=== PATIENT | female | born 1955 | race Caucasian/White ===

== ENCOUNTER 2016-07-06 19:28 | Emergency (ER) | payer OTHER ==
[2016-07-06] MEDS ORDERED: HYDROmorphONE/DILAUDID 1 MG/ML SYR IM ONE (20:25)
[2016-07-06] MEDS ORDERED: ONDANSETRON DISINTEGRATING 4 MG TAB PO ONE (20:25)
[2016-07-06] MEDS ORDERED: CYCLOBENZAPRINE 10 MG TAB PO ONE (20:25)
--- NOTE | 2016-07-06 20:28 | EDPHY ---
H & P Stated Complaint: worsened disc problems, existing L4-S1 disc issues HPI/ROS: CHIEF COMPLAINT: Back pain HISTORY OF PRESENT ILLNESS: REVIEW OF SYSTEMS: Ten systems reviewed and are negative unless otherwise noted in the HPI EXAMINATION General Appearance: Alert, no distress Head: normocephalic, atraumatic Eyes: Pupils equal and round, no conjunctival pallor or injection ENT, Mouth: Mucous membranes moist . Uvula midline. Neck: Normal inspection, supple, non-tender Respiratory: Lungs are clear to auscultation . No wheezing or rhonchi. Cardiovascular: Regular rate and rhythm . No murmurs. Pulses intact distally with symmetric radial, DP and PT. Gastrointestinal: Abdomen is soft and nontender Back: tender to palpation in the lumbar region on the para spinous musculature. No bony tenderness. No crepitus, step-off or deformity.no bony abnormalities . Range of motion limited by pain. Neurological: A&O, nonfocal, Sensory symmetric in both legs and arms. Strength is 5/5 in all limbs. No pronator drift. Reflexes symmetric on the patellar and Achilles. Antalgic with steady gait Skin: Warm and dry, no rash Extremities: Nontender, no pedal edema Psychiatric: Mood and affect normal DIFFERENTIAL DIAGNOSES: Including but not limited to Acute bulging disc, acute ruptured disc, degenerative disc, lumbar fracture MDM: 8:26 p.m. 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 She felt a sudden onset of pain in the lumbar region that radiates to the left and right. There is no pain that radiates past the soft tissue of the back. There is no pain that radiates down either leg. No saddle anesthesia. No incontinence of bowel or bladder. No weakness of the lower extremities. No paresthesias of the lower extremities. Pain is very severe otherwise. We did discuss MRI versus medications. The patient is declining an MRI at this time and prefers to be treated for her pain we will re-evaluate. She is fully neuro intact without any evidence of acute cord injury or cauda equina and I do feel this is reasonable at this time. 9:45 p.m. re-evaluated the patient. She is feeling somewhat better and ambulated with assistance. We had a very lengthy discussion regarding MRI which I did offer and recommend for her. She has declined and would like to be discharged home with pain medication, muscle relaxant and outpatient follow-up. We discussed return to the emergency department precautions, including worsening pain, numbness, tingling, saddle anesthesia, incontinence of bowel or bladder, retention of bowel or bladder, motor changes distally. She is comfortable with Assuming this risk and will be discharged home and follow up with the primary care physician. prior to being so I will obtain a lumbar spine plain film in live an MRI to rule out any acute fracture. 11:00 p.m. lumbar x-rays read as degenerative disc only. No fracture. She is feeling much better and still wants to be discharged home. We revisited the discussion regarding the MRI, any signs or symptoms that may worsen existing her return. At this point I do not appreciate any neuro deficits or evidence of acute cord compression she will be discharged home ambulatory in stable condition. Return to the emergency department precautions and follow up with primary care for MRI and further care. SUPERVISION: This patient was independently evaluated without the aide of supervising physician. Source: Patient Exam Limitations: No limitations - Personal History Current Tetanus/Diphtheria Vaccine: Unsure Current Tetanus Diphtheria and Acellular Pertussis (TDAP): Unsure - Medical/Surgical History Hx Asthma: No Hx Chronic Respiratory Disease: No Hx Diabetes: No Hx Cardiac Disease: No Hx Renal Disease: No Hx Cirrhosis: No Hx Alcoholism: No Hx HIV/AIDS: No Hx Splenectomy or Spleen Trauma: No Other PMH: PSH: B bunion surgery, pancreatic CA, degen disc disease - Social History Smoking Status: Never smoked Constitutional: Initial Vital Signs Temperature (C) 98.6 F 07/06/16 19:50 Heart Rate 74 07/06/16 19:50 Respiratory Rate 15 07/06/16 19:50 Blood Pressure 101/59 L 07/06/16 19:50 O2 Sat (%) 93 07/06/16 19:50 O2 Delivery Mode Room Air Allergies/Adverse Reactions: No Known Allergies Allergy (Unverified 03/03/15 18:47) Home Medications: Medication Instructions Recorded Protonix 12/02/15 Creon 12 (*) 07/06/16 Cyclobenzaprine [Flexeril 10 MG 10 mg PO TID PRN #15 tab 07/06/16 (*)] oxyCODONE HCL/ACETAMINOPHEN 1 each PO Q4-6PRN PRN #20 tablet 07/06/16 [Percocet 5-325 mg Tablet] predniSONE 60 mg PO DAILY #12 tab 07/06/16 Medical Decision Making - Data Points Medications Given: Discontinued Medications Cyclobenzaprine HCl (Flexeril) 10 mg PO EDNOW ONE Stop: 07/06/16 20:26 Last Admin: 07/06/16 20:50 Dose: 10 mg Cyclobenzaprine HCl (Flexeril 10 Mg Prepack#3) 1 btl TAKEHOME EDNOW ONE Stop: 07/06/16 21:48 Last Admin: 07/06/16 22:05 Dose: 1 btl Hydromorphone HCl (Dilaudid) 1 mg IM EDNOW ONE Stop: 07/06/16 20:26 Last Admin: 07/06/16 20:50 Dose: 1 mg Ondansetron HCl (Zofran Odt) 4 mg PO EDNOW ONE Stop: 07/06/16 20:26 Last Admin: 07/06/16 20:51 Dose: 4 mg Oxycodone/Acetaminophen (Percocet 5/325) 1 tab PO EDNOW ONE Stop: 07/06/16 21:47 Last Admin: 07/06/16 22:05 Dose: 1 tab Oxycodone/Acetaminophen (Percocet 5/325mg Prepack#4) 1 btl TAKEHOME EDNOW ONE Stop: 07/06/16 21:48 Last Admin: 07/06/16 22:06 Dose: 1 btl Prednisone (Prednisone) 60 mg PO EDNOW ONE Stop: 07/06/16 21:48 Last Admin: 07/06/16 22:06 Dose: 60 mg Departure - Departure Clinical Impression: Acute low back pain Qualifiers: Back pain laterality: unspecified Sciatica presence: without sciatica Qualifier Code: (M54.5) Low back pain Degeneration of intervertebral disc Qualifiers: Spinal region: lumbar Qualifier Code: (M51.36) Other intervertebral disc degeneration, lumbar region Condition: Fair Instructions: Acute Low Back Pain (ED) Additional Instructions: ED precautions as discussed. Return for worsening pain, numbness, tingling, weakness, incontinence of bowel or bladder, retention of bowel or bladder. Fever, chills. Referrals: Brie Stanford MD [Primary Care Provider] - As per Instructions Prescriptions: Cyclobenzaprine [Flexeril 10 MG (*)] 10 mg PO TID PRN #15 tab PRN Reason: Spasms oxyCODONE HCL/ACETAMINOPHEN [Percocet 5-325 mg Tablet] 1 each PO Q4-6PRN PRN # 20 tablet PRN Reason: Pain, Moderate predniSONE 60 mg PO DAILY #12 tab
[2016-07-06] MEDS ORDERED: OXYCODONE/APAP 5/325 TAB PO ONE (21:46)
[2016-07-06] MEDS ORDERED: predniSONE 20 MG TAB PO ONE (21:47)
[2016-07-06] MEDS ORDERED: OXYCODONE/APAP 5/325MG PREPACK#4 BTL TAKEHOME ONE (21:47)
[2016-07-06] MEDS ORDERED: CYCLOBENZAPRINE 10MG PREPACK#3 BTL TAKEHOME ONE (21:47)
--- NOTE | 2016-07-06 22:54 | DX ---
Lumbar spine, 2 views. History: Pain. Findings: Marked intervertebral disk height loss at L4-L5 and L5 -S1 compatible with degenerative dis k disease. Moderate disk height loss at L3-L4. No fracture or subluxation. Impression: Lower lumbar degenerative disk disease.
[2016-07-06 23:16] VITALS: BP 95/60; PULSE 62; RESP 16; TEMP 98.1; O2SAT 98
== END 2016-07-06 23:16 | disposition home or self-care (01) ==
DX: M51.36 Other intervertebral disc degeneration, lumbar region (principal); Z85.07 Personal history of malignant neoplasm of pancreas
CPT/HCPCS: J1170

== ENCOUNTER → 2016-11-10 | Outpatient (CLI) | payer OTHER ==
[~2016-11-10] MED LIST: DEPO METHYLPREDNISOLONE 40 MG/ML SDV ONE; IOPAMIDOL (ISOVUE 370) 100 ML BTL IV ONE; LIDOCAINE 1% 300 MG/30 ML SDV ONE; ROPIVACAINE HCL 150 MG/30 ML INJ ONE
== END ==
LOC: FIMAGING 12:48
PROVIDERS: ATTEND Physician Assistant
PROC: 3E0U33Z Introduction of Anti-inflammatory into Joints, Percutaneous Approach (ICD-10-PCS; principal; 2016-11-10)
PROC: 3E0U3BZ Introduction of Anesthetic Agent into Joints, Percutaneous Approach (ICD-10-PCS; principal; 2016-11-10)
DX: M16.0 Bilateral primary osteoarthritis of hip (principal)
CPT/HCPCS: J1030; J2795; Q9967

== ENCOUNTER 2017-10-14 09:21 | Emergency (ER) | payer OTHER ==
[2017-10-14] MEDS ORDERED: NS 1,000 ML IV ONE (09:38)
--- NOTE | 2017-10-14 09:38 | EDPHY ---
General Time Seen by Provider: 10/14/17 09:30 Narrative: CHIEF COMPLAINT: Diarrhea HISTORY OF PRESENT ILLNESS: Patient presents with complaints of diarrhea. This started on Monday. She describes multiple episodes per day. This happens every time she tries to eat or drink anything. Associated with some cramping but no ongoing pain. No blood in the stool. No fever. No flank pain. Urinary complaints. She has no recent travel or hospitalization. No recent visitation to [facility]. No recent antibiotics or history of C difficile infection. She does have a history of pancreatic cancer, status post Whipple 2 years ago. She is not undergoing any radiation chemotherapy at this time. She has contacted her naturopathic physician and has been taking naturopathic medications with no improvement. No other associated complaints or modifying factors REVIEW OF SYSTEMS: Ten systems reviewed and are negative unless otherwise noted in the HPI PCP: Naturopathic physician SPECIALISTS: General surgeon at [facility] PAST MEDICAL HISTORY: Pancreatic cancer 2014 PAST SURGICAL HISTORY: Bunionectomy. 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 Lives here locally independently FAMILY HISTORY: Noncontributory EXAMINATION General Appearance: Alert, no distress Head: normocephalic, atraumatic Eyes: Pupils equal and round, no conjunctival pallor or injection ENT, Mouth: Mucous membranes moist Neck: Normal inspection, supple, non-tender Respiratory: Lungs are clear to auscultation Cardiovascular: Regular rate and rhythm Gastrointestinal: Abdomen is soft and nontender. No tympany. No rigidity. No distention. No guarding. Benign abdominal examination Back: non-tender, no bony abnormalities Neurological: A&O, nonfocal, normal gait Skin: Warm and dry, no rash Extremities: Nontender, no pedal edema Psychiatric: Mood and affect normal DIFFERENTIAL DIAGNOSES: Including but not limited to C difficile colitis, rotavirus, infectious diarrhea , dehydration, contraction alkalosis, colitis, enteritis MDM: 9:40 a.m. Profuse, watery diarrhea since Monday. No fever. No abdominal pain. No recent travel, admission to the hospital, antibiotics were history of C difficile colitis. Her abdominal exam is benign. She is in no acute distress with vital signs stable. I have ordered laboratory studies, IV fluid, stool studies for C difficile evaluation. 11:30 a.m. Patient has been unable to provide a stool sample. She has had no diarrhea or bowel movement. She is feeling well. He is ambulating and asking to be discharged home. She is asking if she can provide a sample when she goes home. I informed her that I can write an outpatient laboratory study for her but she will need her primary care physician to follow up on the result. She would like to do this in assume responsibility for this. Additionally I told her I will be irrigated tomorrow morning and can check her chart to see if she has provided a sample. I have read neuro prescription for Flagyl. She has instructions to hold onto the prescription and not fill it unless she has a positive result for C difficile colitis. She is in no discomfort I would like to go home. She is discharged in stable condition SUPERVISION: Patient was independently examined, but I discussed the case with my secondary supervising physician Dr. Porter - History Smoking Status: Never smoked - Objective Vital Signs: Initial Vital Signs Temperature (C) 97.9 F 10/14/17 09:26 Heart Rate 79 10/14/17 09:26 Respiratory Rate 16 10/14/17 09:26 Blood Pressure 125/71 H 10/14/17 09:26 O2 Sat (%) 98 10/14/17 09:26 O2 Delivery Mode Room Air Allergies/Adverse Reactions: No Known Allergies Allergy (Unverified 10/14/17 09:26) Home Medications: Medication Instructions Recorded Creon 12 (*) 07/06/16 metroNIDAZOLE [Flagyl 500 mg (*)] 500 mg PO BID #28 tab 10/14/17 Laboratory Results: Laboratory Results 10/14/17 10:01 10/14/17 10/14/17 10:01 10:01 WBC Pending RBC Pending Hgb Pending Hct Pending MCV Pending MCH Pending MCHC Pending RDW Pending Plt Count Pending MPV Pending Neut % (Auto) Pending Lymph % (Auto) Pending [place] % (Auto) Pending Eos % (Auto) Pending Baso % (Auto) Pending Nucleat RBC Rel Count Pending Absolute Neuts (auto) Pending Absolute Lymphs (auto) Pending Absolute Monos (auto) Pending Absolute Eos (auto) Pending Absolute Basos (auto) Pending Absolute Nucleated RBC Pending Immature Gran % Pending Immature Gran # Pending Sodium 137 mEq/L mEq/L (135-145) Potassium 5.3 mEq/L H mEq/L (3.5-5.2) Chloride 102 mEq/L mEq/L (97-110) Carbon Dioxide 22 mEq/l mEq/l (22-31) Anion Gap 13 mEq/L mEq/L (8-16) BUN 14 mg/dL mg/dL (7-23) Creatinine 0.8 mg/dL mg/dL (0.6-1.0) Estimated GFR > 60 Glucose 92 mg/dL mg/dL (70-100) Calcium 9.4 mg/dL mg/dL (8.5-10.4) Medications Given: Discontinued Medications Sodium Chloride (Ns) 1,000 mls @ 0 mls/hr IV EDNOW ONE; Wide Open PRN Reason: Protocol Stop: 10/14/17 09:39 Last Admin: 10/14/17 10:14 Dose: 1,000 mls Departure - Departure Disposition: Home, Routine, Self-Care Clinical Impression: Diarrhea Qualifiers: Diarrhea type: unspecified type Qualified Code(s): R19.7 - Diarrhea, unspecified Condition: Good Instructions: Loperamide (By mouth), Acute Diarrhea (ED) Additional Instructions: 1. Outpatient laboratory studies as discussed 2. Return to this emergency department for return of symptoms, fever, bloody stools or abdominal pain 3. I have printed a prescription for Flagyl. Do not start taking this unless you have a verified positive C difficile infection on your stool sample that you will bring to the lab Referrals: Brie Stanford MD [Primary Care Provider] - As per Instructions Stand Alone Forms: Outpatient Laboratory Order Prescriptions: metroNIDAZOLE [Flagyl 500 mg (*)] 500 mg PO BID #28 tab
[2017-10-14 11:32] LABS: PLATELET COUNT 312 10^3/uL (150-400)
[2017-10-14 11:45] VITALS: BP 120/75
== END 2017-10-14 11:48 | disposition home or self-care (01) ==
DX: R19.7 Diarrhea, unspecified (principal); E86.9 Volume depletion, unspecified; Z85.07 Personal history of malignant neoplasm of pancreas

== ENCOUNTER 2017-11-22 02:07 | Inpatient (IN) | payer OTHER ==
[2017-11-22] MEDS ORDERED: ONDANSETRON 4 MG/2 ML VIAL ONE (02:23)
[2017-11-22] MEDS ORDERED: ONDANSETRON 4 MG/2 ML VIAL IVP ONE (02:24)
[2017-11-22] MEDS ORDERED: NS 1,000 ML IV ONE (02:24)
--- NOTE | 2017-11-22 02:36 | EDPHY ---
H & P Stated Complaint: ongoing n/v/abd cramping x 8 hrs Time Seen by Provider: 11/22/17 02:33 HPI/ROS: HPI CHIEF COMPLAINT: Nausea vomiting abdominal pain HISTORY OF PRESENT ILLNESS: Patient very pleasant 61-year-old female she has a history of pancreatic cancer she had a Whipple procedure, underwent radiation and chemotherapy. She was in remission from pancreatic cancer but had a recurrence. She was earlier in the year enrolled in a study however. The study as the chemotherapy was making her too sick. She now is treating her pancreatic cancer with a natural remedies. She did have a CT scan of her abdomen pelvis done at [facility] yesterday for routine care in follow-up. . However yesterday around 430 in the afternoon she started having some nausea and has had 3 episodes of vomiting. She complains of diffuse abdominal pain that she describes as pins and needles. She states she had 2 bowel movements no recent diarrhea. Denies any chest pain or shortness of breath, denies fever. Denies urinary symptoms. She does states since arriving to the emergency room she denies any significant abdominal pain at this time. The abdominal pain is improved. Past Medical History: Pancreatic cancer Past Surgical History: Whipple procedure Social History: Denies drugs alcohol tobacco. Family History: Noncontributory ROS REVIEW OF SYSTEMS: A comprehensive 10 point review of systems is otherwise negative aside from elements mentioned in the history of present illness. Exam Constitutional nontoxic. triage nursing summary reviewed, vital signs reviewed , awake/alert. Eyes normal conjunctivae and sclera, EOMI, PERRLA. HENT normal inspection, atraumatic, moist mucus membranes, no epistaxis, neck supple/ no meningismus, no raccoon eyes. Respiratory clear to auscultation bilaterally, normal breath sounds, no respiratory distress, no wheezing. Cardiovascular rate normal, regular rhythm, no murmur, no edema, distal pulses normal. Gastrointestinal mild tender palpation diffusely no rebound, no guarding, normal bowel sounds, no distension, no pulsatile mass. Genitourinary no CVA tenderness. Musculoskeletal no midline vertebral tenderness, full range of motion, no calf swelling, no tenderness of extremities, no meningismus, good pulses, neurovascularly intact. Skin pink, warm, & dry, no rash, skin atraumatic. Neurologic awake, alert and oriented x 3, AAOx3, moves all 4 extremities equally, motor intact, sensory intact, CN II-XII intact, normal cerebellar, normal vision, normal speech. Psychiatric normal mood/affect. Heme/Lymph/Immune no lymphadenopathy. Differential diagnosis includes but is not limited to and in no particular order : Bowel obstruction, appendicitis, gallbladder disease, diverticulitis, colitis , enteritis, perforated viscus, gastritis, GERD, esophagitis, urinary tract infection, pyelonephritis, kidney stones Medical Decision Making: Plan for this patient IV establishment with IV fluid bolus, IV Zofran for nausea, check blood work including lactic acid, will speak to [facility] to obtain CT report from yesterday. Re-evaluation: CT scan abdomen pelvis reviewed that was performed yesterday and [facility]. This was faxed over result stools. This CT scan shows increasing in size of the mass in the resected bed consistent with recurrent disease note that there is increasing mass effect on the superior mesenteric vein which is now focally moderately Narrowed by the mass additionally increase in size in the left supraclavicular mediastinal and David pancreatic lymphadenopathy Additionally numerous new lung nodules and hepatic lesions also likely representing metastatic disease. CT scan abdomen pelvis with IV contrast: Called to me by Dr. Tang, shows increasing metastatic disease with metastatic lesions to the liver and lung, pancreatic mass 3 cm. Does not occlude the SMV. She does have some mesenteric stranding. Additionally her descending going to her anus appears slightly inflamed concerning for colitis. She has had diarrhea. 0534: Spoke with the hospitalist service Dr. Franklin agrees to admit. Source: Patient - Medical/Surgical History Hx Asthma: No Hx Chronic Respiratory Disease: No Hx Diabetes: No Hx Cardiac Disease: No Hx Renal Disease: No Hx Cirrhosis: No Hx Alcoholism: No Hx HIV/AIDS: No Hx Splenectomy or Spleen Trauma: No Other PMH: Bilat bunion surgery, pancreatic CA, degen disc disease, cholecystectomy/whipple procedure - Social History Smoking Status: Never smoked Constitutional: Initial Vital Signs Temperature (C) 36.9 C 11/22/17 02:11 Heart Rate 72 11/22/17 02:11 Respiratory Rate 18 11/22/17 02:11 Blood Pressure 118/64 11/22/17 02:11 O2 Sat (%) 95 11/22/17 02:11 O2 Delivery Mode Room Air Allergies/Adverse Reactions: No Known Allergies Allergy (Verified 11/22/17 02:17) Home Medications: Medication Instructions Recorded Lipase/Protease/Amylase [Mario Dr 2 each PO TIDMEAL 07/06/16 36,000 Units Capsule] Herbals/Supplements -Info Only 1 each PO DAILY 11/22/17 Medical Decision Making - Diagnostics Imaging Results: Imaging Impressions Abdomen CT 11/22/17 04:21 Impression: 1. 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 The proximity of the mass in the retroperitoneum raises the possibility of involvement of the celiac plexus as etiology for pain. 2. 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 3. Small volume of segmental pulmonary emboli in the posterior segment right lower lobe. 4. New pulmonary nodules and liver lesions suspicious for metastatic disease. If desired, the lesion in the lateral segment of left lobe of liver may be amenable to imaging-guided biopsy. 5. Edema and wall thickening of the descending and rectosigmoid colon may represent colitis or be secondary to venous congestion secondary to superior mesenteric vein narrowing. The study was performed as an emergency on-call case and discussed by telephone with Dr. Blackmon at 5:15 a.m. The tiny subsegmental filling defect in the right lower lobe pulmonary artery was not noted at 5:15 a.m. The results were called to Dr. Sanchez at 9:20 a.m. - Data Points Laboratory Results: Laboratory Results 11/22/17 02:40 11/22/17 08:52 Medications Given: Enoxaparin Sodium (Lovenox) 60 mg SC BID CARMELA Stop: 05/21/18 11:59 Last Admin: 11/22/17 21:44 Dose: 60 mg Sodium Chloride (Ns) 1,000 mls @ 100 mls/hr IV CONT CARMELA Stop: 05/21/18 06:29 Last Admin: 11/22/17 09:44 Dose: 1,000 mls Ondansetron HCl (Zofran) 4 mg IVP Q4HRS PRN PRN Reason: Nausea/Vomiting, Can't Take PO Stop: 05/21/18 06:16 Last Admin: 11/22/17 09:43 Dose: 4 mg Pantoprazole Sodium (Protonix) 40 mg IVP BID CARMELA Stop: 05/21/18 11:44 Last Admin: 11/22/17 21:44 Dose: 40 mg Discontinued Medications Hydromorphone HCl (Dilaudid) 0.5 mg IVP EDNOW ONE Stop: 11/22/17 03:15 Last Admin: 11/22/17 03:16 Dose: 0.5 mg Hydromorphone HCl (Dilaudid) 1 mg IVP EDNOW ONE Stop: 11/22/17 03:51 Last Admin: 11/22/17 03:51 Dose: 1 mg Sodium Chloride (Ns) 1,000 mls @ 0 mls/hr IV EDNOW ONE; Wide Open PRN Reason: Protocol Stop: 11/22/17 02:25 Last Admin: 11/22/17 02:38 Dose: 1,000 mls Ondansetron HCl (Zofran) 4 mg IVP EDNOW ONE Stop: 11/22/17 02:25 Last Admin: 11/22/17 02:53 Dose: 4 mg Departure - Departure Disposition: [facility] Acute Clinical Impression: Colitis Pancreatic cancer Qualifiers: Pancreatic malignancy location: other parts of pancreas Qualified Code(s): C25.7 - Malignant neoplasm of other parts of pancreas Abdominal pain Qualifiers: Abdominal location: generalized Qualified Code(s): R10.84 - Generalized abdominal pain Condition: Serious
[2017-11-22 02:46] LABS: PLATELET COUNT 200 10^3/uL (150-400)
[2017-11-22 02:54] LABS: INR 0.97 (0.83-1.16); PROTIME(PATIENT) 13.1 SEC (12.0-15.0)
[2017-11-22] MEDS ORDERED: HYDROmorphONE/DILAUDID 1 MG/ML INJ IVP ONE ×2 (03:14→03:50)
[2017-11-22] MEDS ORDERED: IOPAMIDOL (ISOVUE-300) 100 ML BTL ONE (04:30)
[2017-11-22] MEDS ORDERED: ACETAMINOPHEN 325 MG TAB PO PRN (06:17)
[2017-11-22] MEDS ORDERED: LORazepam 0.5 MG TAB PO PRN (06:17)
[2017-11-22] MEDS ORDERED: oxyCODONE IR 5 MG TAB PO PRN (06:17)
[2017-11-22] MEDS ORDERED: ONDANSETRON 4 MG/2 ML VIAL IVP PRN (06:17)
[2017-11-22] MEDS ORDERED: ONDANSETRON DISINTEGRATING 4 MG TAB PO PRN (06:17)
[2017-11-22] MEDS ORDERED: diphenhydrAMINE 25 MG CAP PO PRN (06:17)
[2017-11-22] MEDS ORDERED: NS 1,000 ML IV SCH (06:30)
--- NOTE | 2017-11-22 11:50 | PDGENHP ---
History and Physical - Chief Complaint n/v/abd pain/diarrhea - History of Present Illness Patient very pleasant 61-year-old female she has a history of pancreatic cancer she had a Whipple procedure, underwent radiation and chemotherapy. She was in remission from pancreatic cancer but had a recurrence. She was earlier in the year enrolled in a study however. The study as the chemotherapy was making her too sick. She now is treating her pancreatic cancer with a natural remedies and has been for 6 months. She did have a CT scan of her abdomen pelvis done at [facility] yesterday for routine care in follow-up. Her CT scan today shows recurrent mass and e/o pancreatic ancer with mets to the lungs and liver. There is also question of colitis. She has had diarrhea for several weeks. Oral intake has been decreased. She feels dehydrated. She complains of diffuse abdominal pain that she describes as pins and needles. Denies any chest pain or shortness of breath, denies fever. Denies urinary symptoms. She does states since arriving to the emergency room she denies any significant abdominal pain at this time. Past Medical History: Pancreatic cancer, Bilat bunion surgery, pancreatic CA, degen disc disease, cholecystectomy/whipple procedure Past Surgical History: Whipple procedure Social History: Denies drugs alcohol tobacco. Family History: Noncontributory CT abd scan shows increasing in size of the mass in the resected bed consistent with recurrent disease note that there is increasing mass effect on the superior mesenteric vein which is now focally moderately Narrowed by the mass additionally increase in size in the left supraclavicular mediastinal and David pancreatic lymphadenopathy Additionally numerous new lung nodules and hepatic lesions also likely representing metastatic disease. History Information - Allergies/Home Medication List Allergies/Adverse Reactions: No Known Allergies Allergy (Verified 11/22/17 02:17) Home Medications: Lipase/Protease/Amylase [Mario Fierro 36,000 Units Capsule] 2 each PO TIDMEAL [Last Taken Unknown] Herbals/Supplements -Info Only 1 each PO DAILY 11/22/17 [Last Taken Unknown] I have personally reviewed and updated: medical history, social history - Social History Smoking Status: Never smoked Review of Systems Review of Systems: ROS: 10pt was reviewed & negative except for what was stated in HPI & below Physical Exam Physical Exam: Temp Pulse Resp BP Pulse Ox 36.6 C 62 14 90/50 L 98 11/22/17 09:29 11/22/17 09:29 11/22/17 09:29 11/22/17 09:29 11/22/17 09:29 Constitutional: no apparent distress, chronically ill appearing Eyes: PERRL, EOMI Ears, Nose, Mouth, Throat: dry mucous membranes Cardiovascular: regular rate and rhythym, No edema Respiratory: no respiratory distress, no rales or rhonchi, clear to auscultation Gastrointestinal: No tenderness, No distension Skin: warm Neurologic: AAOx3 Psychiatric: interacting appropriately, not anxious, not encephalopathic Lymph, Heme, Immunologic: No petechiae Lab Data & Imaging Review 11/22/17 02:40 11/22/17 08:52 WBC 6.18 10^3/uL (3.80-9.50) 11/22/17 02:40 RBC 3.83 10^6/uL (4.18-5.33) L 11/22/17 02:40 Hgb 9.4 g/dL (12.6-16.3) L 11/22/17 02:40 Hct 29.0 % (38.0-47.0) L 11/22/17 02:40 MCV 75.7 fL (81.5-99.8) L 11/22/17 02:40 MCH 24.5 pg (27.9-34.1) L 11/22/17 02:40 MCHC 32.4 g/dL (32.4-36.7) 11/22/17 02:40 RDW 19.3 % (11.5-15.2) H 11/22/17 02:40 Plt Count 200 10^3/uL (150-400) 11/22/17 02:40 MPV 9.4 fL (8.7-11.7) 11/22/17 02:40 Neut % (Auto) 70.6 % (39.3-74.2) 11/22/17 02:40 Lymph % (Auto) 16.0 % (15.0-45.0) 11/22/17 02:40 Iron % (Auto) 11.7 % (4.5-13.0) 11/22/17 02:40 Eos % (Auto) 0.6 % (0.6-7.6) 11/22/17 02:40 Baso % (Auto) 0.8 % (0.3-1.7) 11/22/17 02:40 Nucleat RBC Rel Count 0.0 % (0.0-0.2) 11/22/17 02:40 Absolute Neuts (auto) 4.36 10^3/uL (1.70-6.50) 11/22/17 02:40 Absolute Lymphs (auto) 0.99 10^3/uL (1.00-3.00) L 11/22/17 02:40 Absolute Monos (auto) 0.72 10^3/uL (0.30-0.80) 11/22/17 02:40 Absolute Eos (auto) 0.04 10^3/uL (0.03-0.40) 11/22/17 02:40 Absolute Basos (auto) 0.05 10^3/uL (0.02-0.10) 11/22/17 02:40 Absolute Nucleated RBC 0.00 10^3/uL (0-0.01) 11/22/17 02:40 Immature Gran % 0.3 % (0.0-1.1) 11/22/17 02:40 Immature Gran # 0.02 10^3/uL (0.00-0.10) 11/22/17 02:40 PT 13.1 SEC (12.0-15.0) 11/22/17 02:40 INR 0.97 (0.83-1.16) 11/22/17 02:40 APTT 27.6 SEC (23.0-38.0) 11/22/17 02:40 VBG Lactic Acid 1.4 mmol/L (0.7-2.1) 11/22/17 02:40 Sodium 122 mEq/L (135-145) L 11/22/17 08:52 Potassium 4.0 mEq/L (3.3-5.0) 11/22/17 08:52 Chloride 90 mEq/L (97-110) L 11/22/17 08:52 Carbon Dioxide 22 mEq/l (22-31) 11/22/17 08:52 Anion Gap 10 mEq/L (8-16) 11/22/17 08:52 BUN 12 mg/dL (7-23) 11/22/17 08:52 Creatinine 0.7 mg/dL (0.6-1.0) 11/22/17 08:52 Estimated GFR > 60 11/22/17 08:52 Glucose 87 mg/dL (70-100) 11/22/17 08:52 Calcium 8.2 mg/dL (8.5-10.4) L 11/22/17 08:52 Magnesium 1.6 mg/dL (1.6-2.3) 11/22/17 08:52 Total Bilirubin 0.8 mg/dL (0.1-1.4) 11/22/17 02:40 Conjugated Bilirubin 0.2 mg/dL (0.0-0.5) 11/22/17 02:40 Unconjugated Bilirubin 0.6 mg/dL (0.0-1.1) 11/22/17 02:40 AST 35 IU/L (14-46) 11/22/17 02:40 ALT 38 IU/L (9-52) 11/22/17 02:40 Alkaline Phosphatase 79 IU/L (38-126) 11/22/17 02:40 Total Protein 6.1 g/dL (6.3-8.2) L 11/22/17 02:40 Albumin 3.5 g/dL (3.5-5.0) 11/22/17 02:40 Lipase 13 IU/L (23-300) L 11/22/17 02:40 Urine Color YELLOW 11/22/17 10:50 Urine Appearance CLEAR 11/22/17 10:50 Urine pH 5.0 (5.0-7.5) 11/22/17 10:50 Ur Specific [place] > 1.035 (1.002-1.030) H 11/22/17 10:50 Urine Protein NEGATIVE (NEGATIVE) 11/22/17 10:50 Urine Ketones 2+ (NEGATIVE) H 11/22/17 10:50 Urine Blood NEGATIVE (NEGATIVE) 11/22/17 10:50 Urine Nitrate NEGATIVE (NEGATIVE) 11/22/17 10:50 Urine Bilirubin NEGATIVE (NEGATIVE) 11/22/17 10:50 Urine Urobilinogen NEGATIVE EU (0.2-1.0) 11/22/17 10:50 Ur Leukocyte Esterase NEGATIVE (NEGATIVE) 11/22/17 10:50 Urine Glucose NEGATIVE (NEGATIVE) 11/22/17 10:50 Assessment & Plan Assessment: #N/V #Diarrhea with possible colitis #Abd Pain #Recurrent Pancreatic cancer with mets #Hyponatremia, likely sub acute. Likely due to dehydration #Dehydration #RLL P.E. with family hx of clots, on RA #Anemia, Microcytosis #Borderline low BP Plan: Inpatient Admission Cont IVF, check urine studies Repeat BMP to determine if Na has increased CLD Protonix, Zofran Start Lovenox Check C-Diff check LE Doppler Oncology to see Full Code
[2017-11-22] MEDS: PANTOPRAZOLE SODIUM 40 MG VIAL IVP SCH ×2 (13:00→21:44)
[2017-11-22] MEDS: ENOXAPARIN 60 MG/0.6 ML SYR SC SCH ×2 (13:00→21:44)
--- NOTE | 2017-11-22 16:12 | GCON ---
[f rep st] CONSULTATION ONCOLOGY INITIAL VISIT DATE OF CONSULTATION: 11/22/2017 PRIMARY ONCOLOGIST: Joesph Church M.D. REASON FOR CONSULTATION: E and M for pancreatic cancer. HISTORY OF PRESENT ILLNESS: The patient is a 61-year-old woman who was diagnosed with borderline resectable pancreatic cancer March 2015. I believe she underwent neoadjuvant FOLFIRINOX without significant response. She underwent a Whipple in June 30, 2015, then adjuvant gemcitabine for 4 months which was completed in November 2015. In August 2016, she had a local recurrence that was treated with SBRT. She stated that she had recurrence last fall and I believe, she went on a clinical study with Abraxane and palbociclib. We [place] time. She states she was on it for a couple months, but did not tolerate the side effects, so came off of it. She has been doing alternative therapy since May. She had not had a CT scan for 6 months. She thought she should do a followup. She also yesterday developed acute abdominal pain that was excruciating. She also has had diarrhea for several weeks. Initially, she thought it was related to her pancreatic insufficiency and had her Creon raised, but she has not even had a chance to try that yet. She denied chest pain or shortness of breath. She presented to the emergency room. She was admitted to the hospital with low sodium and intravascular volume depletion. Her abdominal pain is better and she has not had diarrhea since admission. ALLERGIES: She has no known drug allergies. HOME MEDICATIONS: Include Creon 36,000 unit capsules 3 times a day and then some herbs. PAST MEDICAL HISTORY: Chronic illnesses include the pancreatic cancer as described above, degenerative disk disease. SURGICAL HISTORY: Includes Whipple procedure, cholecystectomy. SOCIAL HISTORY: She is a nonsmoker. She is single. She is a teacher. FAMILY HISTORY: Noncontributory. REVIEW OF SYSTEMS: A 10-point review of systems was performed. Pertinent positives as per HPI, otherwise negative. PHYSICAL EXAM: VITAL SIGNS: Temp is 36.8, pulse 63, blood pressure is 90/52. GENERAL: She is a comfortable-appearing woman in no distress. HEENT: Unremarkable. LUNGS: Clear. CARDIAC: Regular. ABDOMEN: Soft, nontender. Bowel sounds are active throughout. EXTREMITIES: No edema. NEUROLOGICAL: Grossly intact. LABORATORY DATA: CBC on arrival showed anemia 9.4 g/dL, MCV of 75. Sodium on arrival was 123; this morning was 122, creatinine 0.7. Her LFTs are unremarkable. 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 The proximity of the mass is near the celiac plexus. She also has moderate to severe narrowing of the superior mesenteric vein to the central mass resulting in mesenteric edema, small volume segmental pulmonary emboli, new pulmonary nodules and liver lesions compared to PET-CT scan from 18 months ago, and some edema with wall thickening of the rectosigmoid colon. IMPRESSION: 1. Metastatic pancreatic cancer, not currently on any standard therapy. 2. Possible colitis. 3. Pancreatic insufficiency. 4. Intravascular volume depletion. 5. Incidental PE. 6. 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 PLAN: I agree with treating her conservatively with fluids and bowel rest and then adding in oral challenges as tolerated. I would also agree with treating the incidental PE because, with the underlying cancer, she is at high risk. She also may develop increasing problems related to the mesenteric vein narrowing. There is not a great therapy for that. Not sure if the mass that is growing has been previously radiated. Recommend she speak to her oncologist in [place] about it. However celiac nerve block could be considered if the pain recurs or persists. She was not really interested in talking about specific treatment for her cancer today. I did not have any further recommendations at this time. /[id number]/MODL MTDD
--- NOTE | 2017-11-22 17:42 | PDMN ---
Medical Necessity Medical necessity: MCG: M05 abd pain undg: pt with ongoing abd pain with poss colitis, N/V, recurrent pancreatic Ca., hyponatremia, dehydration, RLL PE family hx of clots , on RA, anemia, microcytosis, further monitoring and testing needed anticipate > 2 midnights
[2017-11-23 04:57] LABS: PLATELET COUNT 223 10^3/uL (150-400)
[2017-11-23 07:17] VITALS: BP 96/55
[2017-11-23] MEDS: ENOXAPARIN 60 MG/0.6 ML SYR SC SCH (09:25)
[2017-11-23] MEDS: PANTOPRAZOLE SODIUM 40 MG VIAL IVP SCH (09:25)
--- NOTE | 2017-11-23 13:11 | PDDCSUM ---
Discharge Summary Discharge Summary: 61 yo female who was admitted due N/V and dehydration. She was given bowel rest and IVF and has improved. She is now off IVF. She is tolerating a regular diet. Oncology did see her while she was here. No interventions were performed. She has f/u with Oncology at tomorrow. she does have new RLL P.E. as well as superior mesenteric vein narrowing with mesenteric edema. She has been started on Xarelto. She will likely need AC lifelong. She has a hx of prior clots. She also has a family hx of hypercoagulable state. #N/V #Diarrhea with possible colitis #Abd Pain #Recurrent Pancreatic cancer with mets #Hyponatremia, likely sub acute. Likely due to dehydration #Dehydration #RLL P.E. with family hx of clots, on RA #Anemia, Microcytosis #Borderline low BP Exam: NAD AAOX3 RRR CTA B S/NT/ND MEDS: SEE MED REC F/U: WITH ONCOLOGY TOMORROW TOTAL TIME SPENT ON D/C IS 35 MINS
== END 2017-11-23 12:03 | disposition home or self-care (01) | DRG 391 ==
LOC: F1N 06:04 → OBSVTOIN 11:55
PROVIDERS: ADMIT Family Medicine; ATTEND Family Medicine
DX: K52.9 Noninfective gastroenteritis and colitis, unspecified (principal); R11.2 Nausea with vomiting, unspecified; I26.99 Other pulmonary embolism without acute cor pulmonale; I87.1 Compression of vein; E86.0 Dehydration; E87.1 Hypo-osmolality and hyponatremia; C25.9 Malignant neoplasm of pancreas, unspecified; D64.9 Anemia, unspecified; Z83.2 Family history of diseases of the blood and blood-forming organs and certain disorders involving the immune mechanism
CPT/HCPCS: 96374; J1170; J1650; J2405; Q9967

== ENCOUNTER 2018-10-24 18:57 | Emergency (ER) | payer OTHER ==
[2018-10-24] MEDS ORDERED: NS 1,000 ML IV ONE ×2 (19:21→20:10)
[2018-10-24] MEDS ORDERED: ONDANSETRON 4 MG/2 ML VIAL IVP ONE ×2 (19:21→20:10)
--- NOTE | 2018-10-24 19:21 | EDPHY ---
H & P Stated Complaint: nausea vomiting hx of bells palsey and pancreatic CA Time Seen by Provider: 10/24/18 19:15 HPI/ROS: CHIEF COMPLAINT: Nausea vomiting dehydration HISTORY OF PRESENT ILLNESS: The patient is a 62-year-old female with a history of pancreatic cancer status post Whipple in 2016 and radiation 2017. She has abandoned Western medicine treatment is currently being treated by a graphics programmer. 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 She states that she was in her normal state of health until yesterday when she began feeling nauseous. Today she has vomited twice. She has had decreased appetite and feels like she is dehydrated. She has mild diarrhea chronically takes opium Drops for this. She states that that is not changed. She does not wish to have testing done but simply wants to have IV fluids and nausea medication. She denies abdominal pain or tenderness. No fevers. No chest pain or shortness of breath. Severity: Moderate Modifying factors: None REVIEW OF SYSTEMS: Constitutional: denies: chills, fever, recent illness, recent injury EENTM: denies: blurred vision, double vision, nose congestion Respiratory: denies: cough, shortness of breath Cardiac: denies: chest pain, irregular heart rate, lightheadedness, palpitations Gastrointestinal/Abdominal: See HPI Genitourinary: denies: dysuria, frequency, hematuria, pain Musculoskeletal: denies: joint pain, muscle pain Skin: denies: lesions, rash, jaundice, bruising Neurological: denies: headache, numbness, paresthesia, tingling, dizziness, weakness Hematologic/Lymphatic: denies: blood clots, easy bleeding, easy bruising Immunologic/allergic: denies: HIV/AIDS, transplant 10 systems reviewed and negative except as noted EXAM: GENERAL: Thin, nauseous, stable vital signs HEAD: Atraumatic, normocephalic. EYES: Pupils equal round and reactive to light, extraocular movements intact, sclera anicteric, conjunctiva are normal. ENT: TMs normal, nares patent, oropharynx clear without exudates. Moist mucous membranes. NECK: Normal range of motion, supple without lymphadenopathy or JVD. LUNGS: Breath sounds clear to auscultation bilaterally and equal. No wheezes rales or rhonchi. HEART: Regular rate and rhythm without murmurs, rubs or gallops. ABDOMEN: Soft, nontender, normoactive bowel sounds. No guarding, no rebound. No masses appreciated. BACK: No CVA tenderness, no spinal tenderness, step-offs or deformities EXTREMITIES: Normal range of motion, no pitting or edema. No clubbing or cyanosis. NEUROLOGICAL: Cranial nerves II through XII grossly intact. Normal speech, normal gait. 5/5 strength, normal movement in all extremities, normal sensation , normal reflexes PSYCH: Normal mood, normal affect. SKIN: Warm, dry, normal turgor, no visible rashes or lesions. Source: Patient Exam Limitations: No limitations - Personal History Current Tetanus Diphtheria and Acellular Pertussis (TDAP): Yes - Medical/Surgical History Hx Asthma: No Hx Chronic Respiratory Disease: No Hx Diabetes: No Hx Cardiac Disease: No Hx Renal Disease: No Hx Cirrhosis: No Hx Alcoholism: No Hx HIV/AIDS: No Hx Splenectomy or Spleen Trauma: No Other PMH: Bilat bunion surgery, pancreatic CA, degen disc disease, cholecystectomy/whipple procedure - Family History Significant Family History: No pertinent family hx - Social History Smoking Status: Never smoked Alcohol Use: Sober Drug Use: None Constitutional: Initial Vital Signs Temperature (C) 36.8 C 10/24/18 19:01 Heart Rate 59 L 10/24/18 19:01 Respiratory Rate 16 10/24/18 19:01 Blood Pressure 102/66 10/24/18 19:01 O2 Sat (%) 97 10/24/18 19:01 O2 Delivery Mode Room Air Allergies/Adverse Reactions: No Known Allergies Allergy (Verified 10/25/18 06:48) Home Medications: Medication Instructions Recorded Herbals/Supplements -Info Only 1 each PO DAILY 11/22/17 Ondansetron Odt [Zofran Odt 4 mg 4 mg PO Q4 PRN #20 tab 10/24/18 (RX)] Opium 10 mg PO QID 10/24/18 Lipase 24,000/Amylase/Protease 1 cap PO TID PRN 10/25/18 [Creon 24 (*)] Lipase 24,000/Amylase/Protease 2 cap PO TIDMEAL 10/25/18 [Creon 24 (*)] Rivaroxaban [Xarelto 10mg (*)] 20 mg PO HS 10/25/18 Sertraline HCl [Zoloft 50mg (*)] 50 mg PO DAILY 10/25/18 Tears/Dextran 70/Hypromellose 1 drop EACHEYE Q2 PRN 10/25/18 [Natural Balance Tears (*)] Medical Decision Making ED Course/Re-evaluation: 8:10 p.m. Patient is feeling somewhat better but is still slightly nauseous. Will give more Zofran and observe. IV fluids running. Abdomen remains nontender. 9:00 p.m. Patient resting comfortably. Nausea has resolved. Abdominal exam benign. Receiving IV fluids. 9:45 p.m. Patient continues to do well. Fluids with about 500 cc left. 11:00 p.m. patient eager to leave. Symptoms controlled. Will prescribe Zofran. Discussed indications for returning. She will follow up with her regular doctor this week Differential Diagnosis: Partial list of the Differential diagnosis considered include but were not limited to; gastritis, food poisoning, cancer and although unlikely based on the history and physical exam, I also considered ischemia, volvulus. - Data Points Medications Given: Discontinued Medications Sodium Chloride (Ns) 1,000 mls @ 0 mls/hr IV EDNOW ONE; Wide Open PRN Reason: Protocol Stop: 10/24/18 19:22 Last Admin: 10/24/18 19:39 Dose: 1,000 mls Sodium Chloride (Ns) 1,000 mls @ 0 mls/hr IV EDNOW ONE; Wide Open PRN Reason: Protocol Stop: 10/24/18 20:11 Last Admin: 10/24/18 20:19 Dose: 1,000 mls Ondansetron HCl (Zofran) 4 mg IVP EDNOW ONE Stop: 10/24/18 19:22 Last Admin: 10/24/18 19:39 Dose: 4 mg Ondansetron HCl (Zofran) 4 mg IVP EDNOW ONE Stop: 10/24/18 20:11 Last Admin: 10/24/18 20:13 Dose: 4 mg Ondansetron HCl (Zofran Odt 4 Mg Prepack#2) 1 btl TAKEHOME EDNOW ONE Stop: 10/24/18 23:02 Last Admin: 10/24/18 23:05 Dose: 1 btl Ondansetron HCl (Zofran Odt 4 Mg Prepack#2) 1 btl TAKEHOME EDNOW ONE Stop: 10/24/18 23:03 Last Admin: 10/24/18 23:07 Dose: Not Given Departure - Departure Disposition: Home, Routine, Self-Care Clinical Impression: Dehydration Pancreatic cancer Qualifiers: Pancreatic malignancy location: unspecified Qualified Code(s): C25.9 - Malignant neoplasm of pancreas, unspecified Vomiting Qualifiers: Vomiting type: unspecified Vomiting Intractability: non-intractable Nausea presence: without nausea Qualified Code(s): R11.11 - Vomiting without nausea Condition: Fair Instructions: Ondansetron (By mouth), Pancreatic Cancer (DC), Acute Nausea and Vomiting (ED) Referrals: Brie Stanford MD [Primary Care Provider] - 2-3 days, call for appt. Prescriptions: Ondansetron Odt [Zofran Odt 4 mg (RX)] 4 mg PO Q4 PRN #20 tab PRN Reason: Nausea & Vomiting
[2018-10-24] MEDS ORDERED: ONDANSETRON 4 MG/2 ML VIAL ONE (20:11)
[2018-10-24 22:50] VITALS: BP 104/60
[2018-10-24] MEDS ORDERED: ONDANSETRON 4MG PREPACK#2 BTL TAKEHOME ONE ×3 (23:01→23:02)
== END 2018-10-24 23:09 | disposition home or self-care (01) ==
DX: R11.2 Nausea with vomiting, unspecified (principal); C25.9 Malignant neoplasm of pancreas, unspecified; E86.0 Dehydration; Z86.711 Personal history of pulmonary embolism; Z79.01 Long term (current) use of anticoagulants
CPT/HCPCS: 96374; J2405

== ENCOUNTER 2018-10-25 06:34 | Inpatient (IN) | payer OTHER ==
[2018-10-25] MEDS ORDERED: NS 1,000 ML IV ONE (06:55)
[2018-10-25] MEDS ORDERED: ONDANSETRON 4 MG/2 ML VIAL IVP ONE (07:13)
--- NOTE | 2018-10-25 07:19 | EDPHY ---
HPI/HX/ROS/PE/MDM Narrative: CHIEF COMPLAINT: Nausea, vomiting HPI: The patient is a 62-year-old female with a history of pancreatic cancer status post radiation and Whipple procedure a few years ago as well as recent Arreola's palsy diagnosis. She was seen in the emergency department yesterday for nausea and vomiting. At that time she refused any testing and was just requesting IV fluids and antiemetics. She states that overnight she has taken multiple doses of oral Zofran but continues to have severe nausea and vomiting which is causing generalized weakness. She denies abdominal pain. She did produce a stool earlier this morning which she describes as runny and typical for her. She denies fever. The patient states that although yesterday she stated she wanted no workup, today she is interested in pursuing labs and/or advanced imaging as needed. REVIEW OF SYSTEMS: Aside from elements discussed in the HPI, a comprehensive 10-point review of systems was reviewed and is negative. PMH: Includes pancreatic cancer, Whipple procedure, radiation, Arreola's palsy SOCIAL HISTORY: The patient denies alcohol or drug abuse. PHYSICAL EXAM: General:Patient is alert, in no acute distress. ENT: Left-sided facial paresis is noted. Neck: Normal inspection. Full range of motion. Respiratory:No respiratory distress. Breath sounds normal bilaterally. Cardiovascular: Regular rate and rhythm. Strong peripheral pulses. Normal cap refill. Abdomen:The abdomen is nontender to palpation. There are no peritoneal signs. There are normal bowel sounds. Back: Normal to inspection. No tenderness to palpation. Skin: Normal color. No rash. Warm and dry. Extremities: Normal appearance. Full range of motion. Neuro: Oriented x3. Normal motor function. Normal sensory function. ED Course: Patient noted to have swelling around left forearm port site after CT. This area is not particularly indurated or erythematous. NV exam is normal. XR ordered by myself which reveals contrast extravasation. Given history of pancreatic CA, I am concerned that the patient's facial paresis may not in fact represent Arreola's Palsy. CT of the head is negative for obvious trauma or tumor but an abnormal signal was noted in the 4th ventricle per the radiologist. They have recommended an MRI of the brain which I ordered. CT of the abdomen pelvis reveals a louie colitis. No signs of bowel obstruction. On re-evaluation, patient continues to feel very nauseated and request admission. I consulted with the hospitalist service at 11:[address] Barlow will admit the patient. - Data Points Imaging Results: Imaging Impressions Abdomen X-Ray 10/25/18 07:14 Impression: No bowel obstruction. Abdomen CT 10/25/18 08:58 Impression: 1. Pancolitis suggestive of infectious etiology. 2. Compared to most recent available scan from 11/22/2017, mixed response to therapy with improving pulmonary and mesenteric lesions with progression of hepatic metastases. Jesus Patel was notified of these findings by telephone at 10:33 AM on [address] 10/25/18 08:58 Impression: There is a rounded hyperdense lesion adjacent and or within the fourth ventricle measuring 12 x 15 x 15 mm. There is no associated herniation or upstream hydrocephalus. Differential considerations would include blood versus a hyperdense mass such as an epidermoid or lymphoma. Consider MR imaging for further evaluation, with and without contrast, when clinically feasible. Findings were discussed with Jesus Patel MD at 10:22, on 10/25/2018. Forearm X-Ray 10/25/18 10:16 Impression: Extravasated contrast in the region of the port. Laboratory Results: Laboratory Results 10/25/18 07:55 10/25/18 07:55 10/25/18 10/25/18 10/25/18 09:20 07:55 07:55 WBC 5.33 10^3/uL 10^3/uL (3.80-9.50) RBC 4.45 10^6/uL 10^6/uL (4.18-5.33) Hgb 13.8 g/dL g/dL (12.6-16.3) Hct 43.3 % % (38.0-47.0) MCV 97.3 fL fL (81.5-99.8) MCH 31.0 pg pg (27.9-34.1) MCHC 31.9 g/dL L g/dL (32.4-36.7) RDW 14.8 % % (11.5-15.2) Plt Count 115 10^3/uL L 10^3/uL (150-400) MPV 9.9 fL fL (8.7-11.7) Neut % (Auto) 81.3 % H % (39.3-74.2) Lymph % (Auto) 9.6 % L % (15.0-45.0) [place] % (Auto) 7.9 % % (4.5-13.0) Eos % (Auto) 0.2 % L % (0.6-7.6) Baso % (Auto) 0.8 % % (0.3-1.7) Nucleat RBC Rel Count 0.0 % % (0.0-0.2) Absolute Neuts (auto) 4.33 10^3/uL 10^3/uL (1.70-6.50) Absolute Lymphs (auto) 0.51 10^3/uL L 10^3/uL (1.00-3.00) Absolute Monos (auto) 0.42 10^3/uL 10^3/uL (0.30-0.80) Absolute Eos (auto) 0.01 10^3/uL L 10^3/uL (0.03-0.40) Absolute Basos (auto) 0.04 10^3/uL 10^3/uL (0.02-0.10) Absolute Nucleated RBC 0.00 10^3/uL 10^3/uL (0-0.01) Immature Gran % 0.2 % % (0.0-1.1) Immature Gran # 0.01 10^3/uL 10^3/uL (0.00-0.10) RBC/WBC/PLT Morphology TNP Platelet Estimate TNP Sodium 136 mEq/L mEq/L (135-145) Potassium 4.1 mEq/L mEq/L (3.5-5.2) Chloride 101 mEq/L mEq/L (97-110) Carbon Dioxide 27 mEq/l mEq/l (22-31) Anion Gap 8 mEq/L mEq/L (6-14) BUN 20 mg/dL mg/dL (7-23) Creatinine 0.8 mg/dL mg/dL (0.6-1.0) Estimated GFR > 60 Glucose 78 mg/dL mg/dL (70-100) Calcium 8.7 mg/dL mg/dL (8.5-10.4) Total Bilirubin 0.6 mg/dL mg/dL (0.1-1.4) Conjugated Bilirubin 0.3 mg/dL mg/dL (0.0-0.5) Unconjugated Bilirubin 0.3 mg/dL mg/dL (0.0-1.1) AST 38 IU/L IU/L (14-46) ALT 62 IU/L H IU/L (9-52) Alkaline Phosphatase 69 IU/L IU/L (38-126) Total Protein 5.6 g/dL L g/dL (6.3-8.2) Albumin 3.3 g/dL L g/dL (3.5-5.0) Lipase < 10 IU/L L IU/L (23-300) Urine Color YELLOW Urine Appearance HAZY Urine pH 5.0 (5.0-7.5) Ur Specific [place] 1.020 (1.002-1.030) Urine Protein NEGATIVE (NEGATIVE) Urine Ketones 1+ H (NEGATIVE) Urine Blood NEGATIVE (NEGATIVE) Urine Nitrate NEGATIVE (NEGATIVE) Urine Bilirubin NEGATIVE (NEGATIVE) Urine Urobilinogen NEGATIVE EU EU (0.2-1.0) Ur Leukocyte Esterase 1+ H (NEGATIVE) Urine RBC 1-3 /hpf /hpf (0-3) Urine WBC 3-5 /hpf H /hpf (0-3) Ur Epithelial Cells TRACE /lpf /lpf (NONE-1+) Urine Mucus 1+ /lpf /lpf (NONE-1+) Urine Glucose NEGATIVE (NEGATIVE) Medications Given: Discontinued Medications Sodium Chloride (Ns) 1,000 mls @ 0 mls/hr IV EDNOW ONE; Wide Open PRN Reason: Protocol Stop: 10/25/18 06:56 Last Admin: 10/25/18 07:55 Dose: 1,000 mls Ondansetron HCl (Zofran) 4 mg IVP EDNOW ONE Stop: 10/25/18 07:14 Last Admin: 10/25/18 07:35 Dose: 4 mg General Time Seen by Provider: 10/25/18 06:59 Initial Vital Signs: Initial Vital Signs Temperature (C) 36.6 C 10/25/18 06:43 Heart Rate 60 10/25/18 06:43 Respiratory Rate 16 10/25/18 06:43 Blood Pressure 117/68 10/25/18 06:43 O2 Sat (%) 95 10/25/18 06:43 O2 Delivery Mode Room Air O2 (L/minute) 2 Allergies/Adverse Reactions: No Known Allergies Allergy (Verified 10/25/18 06:48) Home Medications: Medication Instructions Recorded Herbals/Supplements -Info Only 1 each PO DAILY 11/22/17 Ondansetron Odt [Zofran Odt 4 mg 4 mg PO Q4 PRN #20 tab 10/24/18 (RX)] Opium 10 mg PO QID 10/24/18 Lipase 24,000/Amylase/Protease 1 cap PO TID PRN 10/25/18 [Creon 24 (*)] Lipase 24,000/Amylase/Protease 2 cap PO TIDMEAL 10/25/18 [Creon 24 (*)] Rivaroxaban [Xarelto 10mg (*)] 20 mg PO HS 10/25/18 Sertraline HCl [Zoloft 50mg (*)] 50 mg PO DAILY 10/25/18 Tears/Dextran 70/Hypromellose 1 drop EACHEYE Q2 PRN 10/25/18 [Natural Balance Tears (*)] Departure - Departure Disposition: [facility] Acute Clinical Impression: Vomiting, Colitis, Injection site extravasation Pancreatic cancer Qualifiers: Pancreatic malignancy location: unspecified Qualified Code(s): C25.9 - Malignant neoplasm of pancreas, unspecified Condition: Fair
[2018-10-25 08:34] LABS: PLATELET COUNT 115 10^3/uL (150-400)
[2018-10-25] MEDS ORDERED: IOPAMIDOL (ISOVUE-300) 100 ML BTL ONE (09:13)
[2018-10-25] MEDS ORDERED: ACETAMINOPHEN 325 MG TAB PO PRN (12:36)
[2018-10-25] MEDS ORDERED: ONDANSETRON DISINTEGRATING 4 MG TAB PO PRN (12:36)
[2018-10-25] MEDS ORDERED: TEARS/DEXTRAN 70/HYPROMELLOSE 15 ML OPHT.BTL EACHEYE PRN (12:39)
[2018-10-25] MEDS ORDERED: LIPASE 24,000/AMYLASE/PROTEASE (CREON) 1 CAP PO PRN (12:39)
[2018-10-25] MEDS ORDERED: GADOBUTROL 10 ML VIAL IVP ONE (13:05)
--- NOTE | 2018-10-25 13:21 | GHP ---
[f rep st] HISTORY AND PHYSICAL DATE OF ADMISSION: 10/25/2018 CHIEF COMPLAINT: Nausea, vomiting. HISTORY OF PRESENT ILLNESS: A 62-year-old female, history of pancreatic cancer , presents with 1 day of nausea, vomiting. She was seen in the ER last night for the same thing. She refused additional workup at that time. She threw up twice yesterday, once today. She has not been able to keep anything down. She feels very nauseous. No abdominal pain. She has chronic diarrhea, which she has treated with opium drops which has helped. She has not had any significant increase in her diarrhea recently. She has been followed at [facility] for colitis; it is unsure exactly the etiology of this. She has not been on any immunotherapy. She was diagnosed with Arreola palsy about 2 months ago. She underwent a course of steroids for this, which did not help her Arreola palsy and did not affect her diarrhea. At baseline, she has 1-2 bowel movements a day since she has been on the opium. However, prior to this, she was having 8 or 9 bowel movements a day. Imaging in the emergency department included a head CT, which showed an abnormality in the 4th ventricle. She has evidence of contrast extravasation after accessing her left forearm part (which was placed in [place]) while receiving the CT of her abdomen. PAST MEDICAL/SURGICAL HISTORY: 1. Pancreatic cancer, status post Whipple and XRT. She has undergone alternative therapy in [place]. 2. Recent diagnosis of Arreola palsy. 3. History of a pulmonary embolus in November, on chronic anticoagulation. MEDICATIONS: Please see medication reconciliation. ALLERGIES: FAMILY HISTORY: Reviewed and noncontributory. SOCIAL HISTORY: She does not drink alcohol. She is accompanied by her friend. REVIEW OF SYSTEMS: A 10-point review of systems is conducted and is negative except per HPI. PHYSICAL EXAM: VITAL SIGNS: Blood pressure 105/64, heart rate 65, respiration rate 16, saturating 98% on room air. Temperature is 36.9. GENERAL: The patient is a pleasant female who is resting comfortably in no acute distress. HEENT: Shows her to be normocephalic, atraumatic. CARDIOVASCULAR: Regular rate and rhythm. No murmurs, rubs, or gallops. PULMONARY: Lungs clear to auscultation bilaterally. ABDOMEN: Shows her to be soft. She is mildly tender to palpation around the umbilicus slightly on the right side. She has normal bowel sounds. She does not have any rebound or guarding. SKIN: No rash. : Shows no [place]. EXTREMITIES: Show her left extremity to have an access to port in place and has some edema surrounding this. PSYCHIATRIC: Normal mood and affect. NEUROLOGIC: Shows her to be alert and oriented x3. She has no focal neurologic deficits. LABS: Platelets are 115. AST is 62. Lipase is negative. Urinalysis shows 3- 5 whites, otherwise unremarkable. DATA: 1. Forearm x-ray shows left extravasated contrast in the forearm. 2. CT scan of her abdomen shows pancolitis as well as progression of hepatic mets, but improving pulmonary and mesenteric lesions. 3. Head CT shows rounded hypodense lesion adjacent to or within the 4th ventricle without hydrocephalus or herniation. IMPRESSION AND PLAN: 1. Pancolitis: There is some chronicity to this, certainly may be worsened currently. Pancolitis is suggestive of an infectious etiology though an inflammatory disorder also seems possible. She has not been on any immunotherapy for her cancer. Will check gastrointestinal pathogen panel and otherwise treat conservatively. I have requested records from [facility] to review her gastrointestinal notes there and see regarding possible colonoscopies and/or biopsy findings. 2. Abnormality near the 4th ventricle on CT scan of her head. MRI is pending. Will hold Xarelto until this is better characterized. Depending on findings, will consult Neurosurgery. 3. Left forearm extravasation of contrast. I have deaccessed the port. She should get a port study tomorrow to see if the port is malfunctioning or if when the port was accessed today, the access was not correct. 4. Pancreatic cancer status post Whipple and XRT. She is not on any current therapy for this. 5. Chronic diarrhea. She is on opium for this. 6. History of a pulmonary embolus. She is on Xarelto. Will hold until we have better characterized her intracranial lesion. 7. Deep vein thrombosis prophylaxis. Either Xarelto or nothing based on above imaging. 8. Code status is full. ADDENDUM: MRI reviewed. Dr Pardo will consult. Will need to decide on Xarelto based on recommendations. /[id number]/MODL MTDD
[2018-10-25] MEDS ORDERED: OPIUM TINCTURE 6 MG/0.6 ML UDSYR PO SCH (15:00)
[2018-10-25] MEDS: OPIUM TINCTURE 6 MG/0.6 ML UDSYR PO SCH ×2 (15:43→21:13)
--- NOTE | 2018-10-25 17:34 | SOAPPROG ---
Downtime Inpatient MD Late Entry SOAP Note: Patient appears to have a LOWER motor neuron 6th and 7th nerve palsy AND a left internuclear ophthalmoplegia with a lesion in the medial longitudinal fasiculus and the facial colliculus on the left side. These 3 structures lie right adjacent to each other in the brainstem. The MRI is not available but this suggests the 4th ventricular lesion is invading the floor of the 4th ventricle at the facial colliculus on the left side of the brainstem. We will review the MRI when it becomes available but it is very likely this represents a malignant process in the 4th ventricle. -humberto cobb md
--- NOTE | 2018-10-25 18:02 | GCON ---
[f rep st] CONSULTATION NEUROSURGICAL CONSULTATION DATE OF CONSULTATION: 10/25/2018 REASON FOR CONSULTATION: 4th ventricular mass. HISTORY OF PRESENT ILLNESS: The patient, unfortunately, is a 62-year-old with a history of pancreatic cancer, treated with a Whipple procedure as well as radiation treatment, who is no longer undergoing routine or normal oncologic care, but has chose an alternative medical route for this, but she is doing it under the close supervision of the physicians Sri. She comes in with a 1- day history of nausea and vomiting, was seen in the ER last night for this. She has a 2-month history of diagnosis of a left Arreola palsy. She has chronic diarrhea as well as post radiation colitis and she has had the Arreola palsy for 2 months with 0 improvement. She denies any change in her hearing, but she also does complain of diplopia. PAST MEDICAL HISTORY: Significant for pancreatic cancer, Arreola palsy, pulmonary embolus in November on chronic anticoagulation. SOCIAL HISTORY: She lives alone, but her neighbor is very close to her and accompanies her frequently to the hospital. She does not drink. MEDICATIONS: Include digestive enzymes, Tylenol, Zofran, opium tincture, Phenergan, Zoloft. ALLERGIES: None. PHYSICAL EXAM: She has good strength in her tibialis anterior, plantar flexors. She has absent reflexes in her knee jerks. Her sensation is intact. Her upper extremity strength in her deltoids, biceps, triceps, wrist extensors, and card assembler is normal. On neuro exam she has a profound left facial nerve palsy and is unable to voluntarily close the left eye. She also has a profound left 6th nerve palsy, unable to abduct the left eye. She also has difficulty in conjugate gaze looking to the left with inability to move the right eye to the left-hand side. . She displays horizontal nystagmus when looking to the right. Her pupils are equal, round, and reactive to light. She has no hyperacusis. Her hearing is intact bilaterally. ASSESSMENT: The patient, unfortunately, is a 62-year-old with a lower motor neuron 6th and 7th nerve finding with a lesion of the medial longitudinal fasciculus on the left-hand side. These lay in the floor of the 4th ventricle and she does not appear to have in fact a Arreola palsy. 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 I have been unable to review her MRI, but it seems almost certain that the 4th ventricular mass is the cause of her difficulty with the 6th and 7th nerve as well as her medial longitudinal fasciculus. Naturally, given the two-month history of this problem and her prior history of pancreatic cancer, one must suspect that this represents an extension of her disease and it is quite unlikely to resolve. I would like to review the MRI before deciding on the surgical plan or further medical plan for the lesion in question. I have discussed my findings with the patient and my opinion that she does not indeed have a Arreola palsy, but has a more difficult problem and I do not think that it is going to resolve. MRI was reviewed. There is a lesion that appears to arise from the floor of the 4th ventricle on the left hand side and almost certainly represents metastatic disease. We would suggest metastatic workup and oncology opinion. Resection of the lesion in the 4th ventricle will not restore her 6th and 7th nerve or the medial longitudinal fasiculus and it comes with some risk. Surgery would be useful to discover the true nature of the lesion, but it is likely that a biopsy alone is all that can be done. If there is evidence of widespread metastatic disease then I am not sure discovering the nature of the 4th ventricular lesion will have an impact on survival or be useful in determining a treatment. She receives her oncologic care at the [facility] and she may wish to seek their opinion as well. There is no contraindication to using anticoagulants in her case at this time but naturally we would stop those agents if surgery is entertained. -Andre Pardo MD. /[id number]/MODL MTDD
[2018-10-25] MEDS: LIPASE 24,000/AMYLASE/PROTEASE (CREON) 1 CAP PO SCH (18:53)
[2018-10-25] MEDS: VANCOMYCIN 125 MG/2.5 ML UDL PO SCH (21:12)
[2018-10-25] MEDS: NS 1,000 ML IV SCH (21:20)
[2018-10-26] MEDS: OPIUM TINCTURE 6 MG/0.6 ML UDSYR PO SCH ×4 (03:21→21:04)
[2018-10-26] MEDS: VANCOMYCIN 125 MG/2.5 ML UDL PO SCH ×4 (05:49→21:04)
[2018-10-26] MEDS: NS 1,000 ML IV SCH ×2 (05:52→14:58)
--- NOTE | 2018-10-26 08:27 | SOAPPROG ---
SOAP Progress Note Assessment/Plan: Assessment: 62 yo female with Pancreatic CA s/p Whipple and radiation with pancolitis and C. Diff. She also has a 4th ventricular lesion causing her eye and facial symptoms. Ongoing nausea. No new neuro changes Plan: Recommend Oncology opinion. Patient plans on contacting her Oncologists in [place] today. Partial resection/biopsy of lesion is possible but not without inherent risk and benefits of doing so must be weighed against her overall prognosis. Dr. Pardo discussed findings with the patient yesterday. Subjective: Lying in bed. Tearful. She denies any new neurologic changes Objective: Vital Signs Temp Pulse Resp BP Pulse Ox 36.5 C 54 L 14 92/51 L 96 10/26/18 03:24 10/26/18 03:24 10/26/18 03:24 10/26/18 03:24 10/26/18 03:24 Microbiology 10/25/18 13:02 Gastrointestinal Tract Panel (PCR) - Final Stool Clostridium Difficile Detected 10/25/18 10/26/18 10/27/18 05:59 05:59 05:59 Intake Total 2750 Balance 2750 Neuro: A+OX4 speech clear, FC LOWERY, Sens +LT Left facial palsy ICD10 Worksheet Patient Problems: Problems Problem Status Onset Colitis Acute Injection site extravasation Acute Vomiting Acute Abdominal pain Acute Dehydration Acute Pancreatic cancer Acute Vomiting Acute
[2018-10-26] MEDS: ONDANSETRON 4 MG/2 ML VIAL IVP PRN (09:04)
[2018-10-26] MEDS: PROMETHAZINE HCL 25 MG/ML INJ IVP PRN (10:05)
[2018-10-26] MEDS: LIPASE 24,000/AMYLASE/PROTEASE (CREON) 1 CAP PO SCH ×3 (10:10→17:29)
[2018-10-26] MEDS: SERTRALINE HCL 50 MG TAB PO SCH (11:53)
[2018-10-26] MEDS ORDERED: IOPAMIDOL (ISOVUE 370) 100 ML BTL IV ONE (11:59)
--- NOTE | 2018-10-26 16:11 | HOSPPROG ---
Hospitalist Progress Note Assessment/Plan: 62 year old female with pmh of pancreatic cancer admitted with NV found to have cdiff. Also noted to have new mets to brain Cdiff colitis- CT reviewed by myself showing colitis. GI panel with Cdiff. On po vancomycin. Abnormal MRI brain- with lesion in 4th ventricle. patient had been told she had bells palsy, but neurology consultation yesterday showing this is not the case. patient has 6th nerve palsy, which is consistent with 4th ventricle lesion, with invasion to brain stem. neurosurgery consulted who could do brain biopsy but it is with risks. patient discussing case with [facility] team to try and determine what she wants to do. Left forearm port- extremely unusual place for port. Ct dye extravasated. Nursing working on accessing port. Port study ordered for today. Pancreatic cancer- status post whipple, XRT. not on anything or this. Concern for metastatic disease given MRI brain findings. Hx PE- on xarelto DVT- xarelto Fluids- NS Lytes- WNL Nutrition- regular Cor- Full, but patient would like to discuss code status. Dispo- inpatient for new brain mass, Cdiff. Subjective: still with some nausea, would like to try PO, Objective: Vital Signs Temp Pulse Resp BP Pulse Ox 37.2 C 55 L 18 93/57 L 89 L 10/26/18 12:08 10/26/18 15:44 10/26/18 15:44 10/26/18 15:44 10/26/18 15:44 Microbiology 10/25/18 13:02 Gastrointestinal Tract Panel (PCR) - Final Stool Clostridium Difficile Detected 10/25/18 10/26/18 10/27/18 05:59 05:59 05:59 Intake Total 2750 Balance 2750 - Physical Exam Constitutional: no apparent distress, appears nourished, not in pain Eyes: PERRL, anicteric sclera, EOMI Ears, Nose, Mouth, Throat: moist mucous membranes, hearing normal, ears appear normal, no oral mucosal ulcers Cardiovascular: regular rate and rhythym, no murmur, rub, or gallop Respiratory: no respiratory distress, no rales or rhonchi, clear to auscultation Gastrointestinal: normoactive bowel sounds, soft, non-tender abdomen, no palpable masses Genitourinary: no bladder fullness, no bladder tenderness, no renal bruits Skin: no rashes or abrasions, no fluctuance, no induration Musculoskeletal: full muscle strength, no muscle tenderness, normal joint ROM Neurologic: AAOx3, facial droop, other (cannot look left, left facial weakness. ) Psychiatric: interacting appropriately, not anxious, not encephalopathic, thought process linear Lymph, Heme, Immunologic: no cervical LAD, no supraclavicular LAD ICD10 Worksheet Patient Problems: Problems Problem Status Onset Colitis Acute Injection site extravasation Acute Vomiting Acute Abdominal pain Acute Dehydration Acute Pancreatic cancer Acute Vomiting Acute
--- NOTE | 2018-10-26 16:11 | ASMTCASEMG ---
Living Arrangements What is your living Answers: Alone arrangement? Who do you live with? Type Of Residence What kind of residence do Answers: Condo/Townhouse you live in? Stairs in Home Answers: Yes Notes: condo is on 2nd floor; pt Environment uses handrail for suppo rt Discharge Plan Comments Coordination Status Comments Notes: Pt was admitted through ED yesterday for nausea and vomiting. She has a history of pancreatic cancer and a recent Arreola's palsy diagnosis. 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 Pt declines biopsy of the lesion. It is thought that this is the actual cause of her facial paresis rather than Arreola's palsy. CM met with pt in her room today. Pt's friend was present. Pt gave CM permission to ask her questions in friend's presence. Pt states that she lives alone in a 2nd-story condo. She uses the handrail on the stairs for support. She has two sisters, neither of whom is local: Monica Anat [phone] in [place] and Lakia Velez [phone] in [place]. Pt does not currently use any homecare services. OT is recommending homecare; CM left list of agencies for pt. Pt asked for some time to peruse it as she is feeling overwhelmed right now. CM will put in a referral when she decides. Hospice and Palliative orders have been entered; awaiting outcome of their visits. CM will continue to follow. JADEN D/C plan: TBD Date Signed: 10/26/2018 04:11 PM Electronically Signed By:Maryse Pederson
--- NOTE | 2018-10-26 16:12 | ASMTCMCOM ---
CM Note CM Note Notes: Sun met with pt and discussed palliative vs hospice. They left information with her; pt is feeling too overwhelmed to make a decision at this time but will consider over the weekend. Pt expressed wish to be DNR status rather than full code as stated in her chart. CM spoke to hospitalist; he will discuss with her. Pt states that she will have a cousin and an aunt coming to her home to help her out for awhile, but not until next Tuesday 10/31. CM will continue to follow. CM D/C plan: TBD Date Signed: 10/26/2018 04:12 PM Electronically Signed By:Maryse Pederson
[2018-10-26] MEDS: RIVAROXABAN 10 MG TAB PO SCH (21:04)
[2018-10-27] MEDS: OPIUM TINCTURE 6 MG/0.6 ML UDSYR PO SCH ×5 (03:22→20:13)
[2018-10-27] MEDS: LIPASE 24,000/AMYLASE/PROTEASE (CREON) 1 CAP PO SCH ×3 (06:00→12:02)
[2018-10-27] MEDS: VANCOMYCIN 125 MG/2.5 ML UDL PO SCH ×4 (06:28→22:01)
[2018-10-27] MEDS: SERTRALINE HCL 50 MG TAB PO SCH (09:50)
--- NOTE | 2018-10-27 14:43 | HOSPPROG ---
Hospitalist Progress Note Assessment/Plan: 62 year old female with pmh of pancreatic cancer admitted with NV found to have cdiff. Also noted to have new mets or new brain lesion Cdiff colitis- CT reviewed by myself showing colitis. GI panel with Cdiff. On po vancomycin. Abnormal MRI brain- with lesion in 4th ventricle. patient had been told she had bells palsy, but neurology was consulted and feels that symptoms highly suggestive of malignancy, confirmed with MRI brain. 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 neurosurgery consulted who could do brain biopsy but it is with risks. Patient initially wanted to discuss with [facility] oncology but now has decided she would not want chemo or treatment and so sees no utility in discussing with team at [facility] and would like to pursue hospice. Left forearm port- port study reviewed by myself and port is patent. Nursing able to access with some guidance from [employer]. Pancreatic cancer- status post whipple, XRT. not on anything or this. Concern for metastatic disease given MRI brain findings. Hx of PE- Neurosurgery has cleared her to use xarelto. DVT- xarelto Fluids- NS Lytes- WNL Nutrition- regular Cor- changed to DNR today. Dispo- inpatient for new brain mass, Cdiff. Subjective: no nausea, tolerating PO now, one formed stool. Objective: Vital Signs Temp Pulse Resp BP Pulse Ox 36.6 C 54 L 16 93/58 L 91 L 10/27/18 11:53 10/27/18 11:53 10/27/18 11:53 10/27/18 11:53 10/27/18 11:53 Laboratory Results 10/27/18 04:34 10/26/18 10/27/18 10/28/18 05:59 05:59 05:59 Intake Total 2750 950 Balance 2750 950 - Physical Exam Constitutional: no apparent distress, appears nourished, not in pain Eyes: PERRL, anicteric sclera, EOMI Ears, Nose, Mouth, Throat: moist mucous membranes, hearing normal, ears appear normal, no oral mucosal ulcers Cardiovascular: regular rate and rhythym, no murmur, rub, or gallop Respiratory: no respiratory distress, no rales or rhonchi, clear to auscultation Gastrointestinal: normoactive bowel sounds, soft, non-tender abdomen, no palpable masses Genitourinary: no bladder fullness, no bladder tenderness, no renal bruits Skin: no rashes or abrasions, no fluctuance, no induration Musculoskeletal: full muscle strength, no muscle tenderness, normal joint ROM Neurologic: AAOx3, facial droop (left facial droop. ) Psychiatric: interacting appropriately, not anxious, not encephalopathic, thought process linear Lymph, Heme, Immunologic: no cervical LAD, no supraclavicular LAD ICD10 Worksheet Patient Problems: Problems Problem Status Onset Colitis Acute Injection site extravasation Acute Vomiting Acute Abdominal pain Acute Dehydration Acute Pancreatic cancer Acute Vomiting Acute
[2018-10-27] MEDS: ONDANSETRON 4 MG/2 ML VIAL IVP PRN ×2 (16:11→20:10)
[2018-10-27] MEDS: NS 1,000 ML IV SCH (16:11)
[2018-10-27] MEDS: RIVAROXABAN 10 MG TAB PO SCH (20:10)
[2018-10-28] MEDS: OPIUM TINCTURE 6 MG/0.6 ML UDSYR PO SCH ×5 (00:42→23:33)
[2018-10-28] MEDS: NS 1,000 ML IV SCH (04:16)
[2018-10-28] MEDS: ONDANSETRON 4 MG/2 ML VIAL IVP PRN ×2 (04:40→11:12)
[2018-10-28] MEDS: PROMETHAZINE HCL 25 MG/ML INJ IVP PRN (05:23)
[2018-10-28] MEDS: VANCOMYCIN 125 MG/2.5 ML UDL PO SCH ×4 (06:17→20:26)
[2018-10-28] MEDS: SERTRALINE HCL 50 MG TAB PO SCH (09:10)
[2018-10-28] MEDS: LIPASE 24,000/AMYLASE/PROTEASE (CREON) 1 CAP PO SCH ×3 (09:10→16:53)
--- NOTE | 2018-10-28 12:08 | HOSPPROG ---
Hospitalist Progress Note Assessment/Plan: 62 year old female with pmh of pancreatic cancer admitted with NV found to have cdiff. Also noted to have new mets or new brain lesion Cdiff colitis- GI panel with Cdiff. On po vancomycin. still with nausea, but no longer diarrhea Abnormal MRI brain- with lesion in 4th ventricle. patient had been told she had bells palsy, but neurology was consulted and feels that symptoms highly suggestive of malignancy, confirmed with MRI brain showing 4th ventricle lesion. Patient has 6th nerve palsy, which is consistent with 4th ventricle lesion, with invasion to brain stem. neurosurgery consulted who could do brain biopsy but it is with risks. Patient initially wanted to discuss with [facility] oncology but now has decided she would not want chemo or treatment and so sees no utility in discussing with team at [facility] and would like to pursue hospice. Nausea- possibly due to cdiff, but certainly could also be due to brain mass. requiring zofran/phenergan but still nauseated. will add IV zyprexa if persists Left forearm port- port study reviewed by myself and port is patent. Nursing able to access with some guidance from [employer]. Pancreatic cancer- status post whipple, XRT. not on anything or this. Concern for metastatic disease given MRI brain findings. PE- Neurosurgery has cleared her to use xarelto. DVT- xarelto Fluids- NS Lytes- WNL Nutrition- regular Cor- changed to DNR today. Dispo- inpatient for new brain mass, Cdiff. plan to dc home with hospice, will meet with meli to arrange. Subjective: still having substantial nausea. Objective: Vital Signs Temp Pulse Resp BP Pulse Ox 36.9 C 52 L 16 101/61 93 10/28/18 11:55 10/28/18 11:55 10/28/18 11:55 10/28/18 11:55 10/28/18 11:55 Laboratory Results 10/27/18 04:34 10/27/18 10/28/18 10/29/18 05:59 05:59 05:59 Intake Total 950 3297 Balance 950 3297 - Physical Exam Constitutional: no apparent distress, appears nourished, not in pain Eyes: PERRL, anicteric sclera, EOMI Ears, Nose, Mouth, Throat: moist mucous membranes, hearing normal, ears appear normal, no oral mucosal ulcers Cardiovascular: regular rate and rhythym, no murmur, rub, or gallop Respiratory: no respiratory distress, no rales or rhonchi, clear to auscultation Gastrointestinal: normoactive bowel sounds, soft, non-tender abdomen, no palpable masses Genitourinary: no bladder fullness, no bladder tenderness, no renal bruits Skin: no rashes or abrasions, no fluctuance, no induration Musculoskeletal: full muscle strength, no muscle tenderness, normal joint ROM Neurologic: facial droop (left facial droop. ), other Psychiatric: interacting appropriately, not anxious, not encephalopathic, thought process linear Lymph, Heme, Immunologic: no cervical LAD, no supraclavicular LAD ICD10 Worksheet Patient Problems: Problems Problem Status Onset Colitis Acute Injection site extravasation Acute Vomiting Acute Abdominal pain Acute Dehydration Acute Pancreatic cancer Acute Vomiting Acute
--- NOTE | 2018-10-28 16:43 | ASMTCMCOM ---
CM Note CM Note Notes: CM met with Pt in her room and Pt agreed to talk about discharge plans with 2 friends present. Pt wanting to discharge today but Home-care was not arrange yet as Pt had not yet decided what type of service she wanted. Also, Pt was having severe nausea that was relieved by IV anti-nausea meds only. Pt realized leaving today was not appropriate. Pt decided today to have [facility] service at home. Sun Taylor will meet with Pt tomorrow. Sun referral placed. Marguerite (Stas) was here to see Kenzie today. CM available for needs. PLAN: Likely discharge home with Hospice Date Signed: 10/28/2018 04:42 PM Electronically Signed By:Rosemarie Macias
--- NOTE | 2018-10-28 17:11 | PDMN ---
Medical Necessity Medical necessity: Pt changed to IP 10/26/2018 per and CRISTAL MG-N (Neurology GRG ); pt with hx of pancreatic CA was initially OBS for nausea and vomiting, but an MRI of the brain shows a new lesion in the L ventricle causing symptoms in the 6th and 7th nerve and diplopia that the pt has had x 2 months. Given this new finding the pt has been changed to IP for further workup, neuro monitoring, neurology consultation, oncology consultation and palliative care consultation. Additionally, the pt is being tx for C.diff with IV vanco, she is also requiring IVP antiemetics.
[2018-10-28] MEDS: RIVAROXABAN 10 MG TAB PO SCH (20:26)
[2018-10-29] MEDS: OPIUM TINCTURE 6 MG/0.6 ML UDSYR PO SCH ×3 (06:11→20:07)
[2018-10-29] MEDS: VANCOMYCIN 125 MG/2.5 ML UDL PO SCH ×5 (06:11→22:54)
[2018-10-29] MEDS: ONDANSETRON 4 MG/2 ML VIAL IVP PRN ×2 (06:39→12:51)
[2018-10-29] MEDS: SERTRALINE HCL 50 MG TAB PO SCH (09:05)
[2018-10-29] MEDS: LIPASE 24,000/AMYLASE/PROTEASE (CREON) 1 CAP PO SCH ×3 (09:05→18:19)
--- NOTE | 2018-10-29 09:20 | NEUSURGPN ---
Assessment/Plan: Assessment: 62 yr old female with Pancreatic CA s/p Whipple and radiation with pancolitis and C. Diff. She also has a 4th ventricular lesion causing her eye and facial symptoms. Plan: -Recommend Oncology opinion- -Partial resection/biopsy of lesion is possible but not without inherent risk and benefits of doing so must be weighed against her overall prognosis. Patient does not wish to proceed with any brain surgery -Ok for anticoagulation -Neurosurgery will sign off, please call with any questions Discussed patient with Dr Pardo Subjective: No new events, denies headache Objective: AxOx4 Left facial palsy Tongue protrudes midline MAEx4 10/14 Neuro Check Frequency: per routine Urinary Catheter in Place: No - Physician Discussed Patient with : Ed[facility] Neurosurgery Physical Exam - Vitals, I&O, Labs I and O 10/28/18 10/29/18 10/30/18 05:59 05:59 05:59 Intake Total 3297 2400 Output Total 5 Balance 3297 2395 Intake: Oral (ml) 600 2400 IV Infused (ml) 2697 Ns 1,000 ml @ 100 mls/hr 2697 IV CONT CARMELA Rx#: [id number] Output: Urine (ml) 5 Toilet 5 Other: Number of Voids Toilet 2 Number of Stools Toilet 1 2 Vital Signs Temp Pulse Resp BP Pulse Ox 36.7 C 46 L 16 113/71 94 10/29/18 08:39 10/29/18 08:39 10/29/18 08:39 10/29/18 08:39 10/29/18 08:39 Laboratory Results 10/27/18 04:34 ICD10 Worksheet Patient Problems: Problems Problem Status Onset Colitis Acute Injection site extravasation Acute Vomiting Acute Abdominal pain Acute Dehydration Acute Pancreatic cancer Acute Vomiting Acute
[2018-10-29] MEDS: PROMETHAZINE HCL 25 MG/ML INJ IVP PRN (13:24)
[2018-10-29] MEDS ORDERED: PROCHLORPERAZINE MALEATE 10 MG TAB PO PRN (13:40)
[2018-10-29] MEDS ORDERED: NS 1,000 ML IV SCH (14:15)
[2018-10-29] MEDS: LORazepam 2 MG/ML INJ IVP PRN (15:20)
--- NOTE | 2018-10-29 16:34 | HOSPPROG ---
Hospitalist Progress Note Assessment/Plan: 62 year old female with pmh of pancreatic cancer admitted with NV found to have cdiff. Also noted to have new mets or new brain lesion Cdiff colitis- GI panel with Cdiff. On po vancomycin. still with nausea, but no longer diarrhea Abnormal MRI brain- with lesion in 4th ventricle. patient had been told she had bells palsy, but neurology was consulted and feels that symptoms highly suggestive of malignancy, confirmed with MRI brain showing 4th ventricle lesion. Patient has 6th nerve palsy, which is consistent with 4th ventricle lesion, with invasion to brain stem. neurosurgery consulted who could do brain biopsy but it is with risks. Patient initially wanted to discuss with [facility] oncology but now has decided she would not want chemo or treatment and so sees no utility in discussing with team at [facility] and would like to pursue hospice. Intractable nausea and vomiting- at this point etiology likely related to brain mets. requiring zofran/phenergan but still nauseated. Added IV ativan, and will add IV haldol. Left forearm port- port study reviewed by myself and port is patent. Nursing able to access with some guidance from [employer]. Pancreatic cancer- status post whipple, XRT. not on anything or this. Concern for metastatic disease given MRI brain findings. PE- Neurosurgery has cleared her to use xarelto. DVT- xarelto Fluids- NS Lytes- WNL Nutrition- regular Cor- changed to DNR today. Dispo- inpatient for new brain mass, Cdiff. plan to dc home with hospice, will meet with meli to arrange. Subjective: severe nausea and vomiting despite meds. not taking good po. Objective: Vital Signs Temp Pulse Resp BP Pulse Ox 36.7 C 57 L 18 107/75 94 10/29/18 13:05 10/29/18 11:11 10/29/18 11:11 10/29/18 11:11 10/29/18 11:11 Laboratory Results 10/27/18 04:34 10/28/18 10/29/18 10/30/18 05:59 05:59 05:59 Intake Total 3297 2400 Output Total 5 Balance 3297 2395 - Physical Exam Constitutional: chronically ill appearing Eyes: PERRL, anicteric sclera, EOMI Ears, Nose, Mouth, Throat: moist mucous membranes, hearing normal, ears appear normal, no oral mucosal ulcers Cardiovascular: regular rate and rhythym, no murmur, rub, or gallop Respiratory: no respiratory distress, no rales or rhonchi, clear to auscultation Gastrointestinal: normoactive bowel sounds, soft, non-tender abdomen, no palpable masses Genitourinary: no bladder fullness, no bladder tenderness, no renal bruits Skin: no rashes or abrasions, no fluctuance, no induration Musculoskeletal: full muscle strength, no muscle tenderness, normal joint ROM Neurologic: facial droop Psychiatric: interacting appropriately, not anxious, not encephalopathic, thought process linear Lymph, Heme, Immunologic: no cervical LAD, no supraclavicular LAD ICD10 Worksheet Patient Problems: Problems Problem Status Onset Colitis Acute Injection site extravasation Acute Vomiting Acute Abdominal pain Acute Dehydration Acute Pancreatic cancer Acute Vomiting Acute
[2018-10-29] MEDS: NS 1,000 ML IV SCH (18:18)
--- NOTE | 2018-10-29 18:28 | ASMTCMCOM ---
CM Note CM Note Notes: CM met with Pt and informed her Corrine from [facility] would meet with her sometime today. Pt continues to have issues with nausea control. This afternoon, Corrine with [facility] met with Pt who agreed to Hospice care for controlling symptoms. Corrine spoke with Trey from [facility] and a referral was sent. CM will continue to monitor for needs. PLAN: SNF/TBD for Hospice Care. Date Signed: 10/29/2018 04:44 PM Electronically Signed By:Rosemarie Macias
[2018-10-29] MEDS: RIVAROXABAN 10 MG TAB PO SCH (22:54)
[2018-10-30] MEDS: OPIUM TINCTURE 6 MG/0.6 ML UDSYR PO SCH ×2 (02:24→05:09)
[2018-10-30] MEDS: VANCOMYCIN 125 MG/2.5 ML UDL PO SCH (05:09)
[2018-10-30] MEDS: PROMETHAZINE HCL 25 MG/ML INJ IVP PRN (07:14)
[2018-10-30 07:56] VITALS: BP 121/73
[2018-10-30] MEDS: SERTRALINE HCL 50 MG TAB PO SCH (08:04)
[2018-10-30] MEDS: LIPASE 24,000/AMYLASE/PROTEASE (CREON) 1 CAP PO SCH (08:04)
[2018-10-30] MEDS ORDERED: HALOPERIDOL LACT 5 MG/ML INJ IVP PRN (08:55)
[2018-10-30] MEDS: LORazepam 2 MG/ML INJ IVP PRN (09:45)
--- NOTE | 2018-10-30 10:16 | ASMTCMCOM ---
CM Note CM Note Notes: Pt met with Corrine from [facility] this morning and Pt has agreed to go to [facility]. Transportation arrange by Corrine and Pt to transfer around 11am. Updated referral and D/c meds with orders sent to [facility]. CM will monitor for needs until discharge. PLAN Discharge to [facility]. Date Signed: 10/30/2018 10:15 AM Electronically Signed By:Rosemarie Macias
--- NOTE | 2018-10-30 10:17 | ASMTLACE ---
LACE Length of stay for Answers: 4-6 days current admission Acuity / Level of Answers: Yes Care: Did the patient have an inpatient admission? Comorbidities - select Answers: Any tumor (including all that apply lymphoma or leukemia) Other Notes: Arreola's palsy; PE # of Emergency department Answers: 1-2 visits in the last 6 months Score: 11 Date Signed: 10/30/2018 10:15 AM Electronically Signed By:Rosemarie Macias
--- NOTE | 2018-10-30 10:19 | PDIAF ---
- Diagnosis Code Status: Do Not Resuscitate - Medication Management Discharge Medications: electronically signed and located in the Home Medication List. - Orders Isolation Type: CDIFF Isolation Diet Recommendation: no restrictions on diet Diet Texture: Regular Texture Diet Additional Instructions: complete 4 more days of vancomycin oral to complete course of abx for cdiff. - Follow Up Care Current Providers and Referrals: Brie Stanford MD [Primary Care Provider] - As per Instructions
--- NOTE | 2018-10-30 15:40 | PDDCSUM ---
Discharge Summary Discharge Summary: Discharge diagnosis Intractable nausea and vomiting Brain lesion likely metastatic pancreatic cancer Left-sided facial droop History of pancreatic cancer C diff colitis Diarrhea History of PE on Xarelto The patient was admitted with complaints of diarrhea nausea and vomiting. She also had a left-sided facial droop. GI pathogen panel was positive for C diff and so she was started on oral vancomycin. MRI brain was obtained which showed a 4th ventricle lesion. Neurology and Neurosurgery were consulted. Neurology felt this likely represented a malignancy and that her facial droop was not secondary to a Arreola's palsy as was previously thought. Neurosurgery said that they could do a brain biopsy but it was with substantial risk. The patient was not willing to go through biopsy and wanted no further chemotherapy. Her diarrhea resolved but her nausea and vomiting worsened and it was thought that this was due to her this mass in her 4th ventricle. The patient was willing to meet with hospice and ultimately decided to go home with hospice. She was evaluated and approved for inpatient hospice admission for symptom control of her intractable nausea and vomiting. She was discharged to inpatient hospice facility for management of her intractable nausea and vomiting but also to complete a course of oral vancomycin for her C diff. Disposition Discharged to inpatient hospice facility I spent over 30 min on the discharge of this patient
== END 2018-10-30 11:35 | disposition hospice, home (50) | DRG 372 ==
LOC: INTOOBSV 10:55 → F1N 11:46 → OBSVTOIN 10-26 16:54
PROVIDERS: ADMIT Student in an Organized Health Care Education/Training Program; ATTEND Student in an Organized Health Care Education/Training Program
DX: A04.72 Enterocolitis due to Clostridium difficile, not specified as recurrent (principal); C79.31 Secondary malignant neoplasm of brain; E86.9 Volume depletion, unspecified; R29.810 Facial weakness; Z79.01 Long term (current) use of anticoagulants; Z85.07 Personal history of malignant neoplasm of pancreas; Z86.711 Personal history of pulmonary embolism
CPT/HCPCS: 96374; 97161-GP; 97165-GO; 97530-GO; A9585; G0378; J1630; J1642; J2060; J2405; J2550; Q9967